=== PATIENT | female | born 1965 | race African-American/Black ===

== ENCOUNTER 2016-09-14 08:45 | Emergency (ER) | payer SELFPAY ==
[~2016-09-14] VITALS: Ht 167.6 cm; Wt 68.0 kg
[~2016-09-14 08:45] MED LIST: IBUP800T23 PO; OSEL75 PO; VENTAER INH
[2016-09-14 08:47] VITALS: BP 116/61; PULSE 80; RESP 17; TEMP 97.8; O2SAT 98
[2016-09-14] MEDS ORDERED: DEXAMETHASONE SOD PHOS 20 MG/5 ML VIAL IM ONE (09:45)
[2016-09-14] MEDS ORDERED: IBUPROFEN 800 MG TAB PO ONE (09:45)
[2016-09-14] MEDS ORDERED: ORPHENADRINE INJ 60 MG/2 ML AMP IM ONE (09:45)
--- NOTE | 2016-09-14 09:50 | PD ---
HPI Chief Complaint: Back/ Neck Pain or Injury Time Seen by Provider: 09:47 Travel History International Travel<30 days: No Contact w/Intl Traveler<30days: No Traveled to known affect area: No History of Present Illness HPI Patient is a 50-year-old female who presents emergency department for evaluation of low back pain. Patient states her pain has been ongoing for approximately 3 days, she states her pain is tight and crampy. She rates her pain a 9 out of 10. She denies any bladder or bowel incontinence, no saddle paresthesia, no weakness in her extremities. She has not taken anything to alleviate the pain. She reports laying on the floor yesterday trying to stretch without relief. PFS Past Medical History Arthritis: Yes Asthma: Yes Heart Rhythm Problems: No Cardiac Catheterization: No Cardiovascular Problems: No High Cholesterol: No Congestive Heart Failure: No Diabetes: No Diminished Hearing: No Hypertension: No Musculoskeletal: Yes (ARTHRITIS) Respiratory: Yes (BRONCHITIS ) Myocardial Infarction: No Ulcer: Yes ?: Not : 5 Para: 5 Tubal Ligation: Yes Past Surgical History Coronary Artery Bypass Graft: No Other Surgery: Yes (TUBAL 11 YEARS AGO) Social History Alcohol Use: Yes (occasional) Tobacco Use: Yes Substance Use: Yes (cocaine, marijuana ) Allergies-Medications (Allergen,Severity, Reaction): Coded Allergies: No Known Allergies (Unverified , 09/14/16) Reported Meds & Prescriptions Reported Meds & Active Scripts Active Review of Systems Except as stated in HPI: all other systems reviewed are Neg Musculoskeletal: Positive: Myalgias, Cramping, Pain Physical Exam Narrative GENERAL: Well-nourished, well-developed patient. SKIN: Warm and dry. HEAD: Normocephalic. EYES: No scleral icterus. No injection or drainage. NECK: Supple, trachea midline. No JVD or lymphadenopathy. CARDIOVASCULAR: Regular rate and rhythm without murmurs, gallops, or rubs. RESPIRATORY: Breath sounds equal bilaterally. No accessory muscle use. GASTROINTESTINAL: Abdomen soft, non-tender, nondistended. MUSCULOSKELETAL: No cyanosis, or edema. 5/5 muscle strength in bilateral lower extremities. Bilateral leg lift elicits pain in the lower back. Tenderness to palpation in paraspinal musculature in the lumbar region bilaterally and positive pedal pulses, brisk less than 3 second capillary refill. BACK: Nontender without obvious deformity. No CVA tenderness. Data Data Last Documented VS Vital Signs Date Time Temp Pulse Resp B/P Pulse Ox O2 Delivery O2 Flow Rate FiO2 09/14/16 08:47 97.8 80 17 116/61 98 Orders Dexamethasone Inj (Decadron Inj) (09/14/16 09:45) Orphenadrine Inj (Norflex Inj) (09/14/16 09:45) Ibuprofen (Motrin) (09/14/16 09:45) MDM Medical Decision Making Medical Screen Exam Complete: Yes Emergency Medical Condition: Yes Interpretation(s) Vital Signs Date Time Temp Pulse Resp B/P Pulse Ox O2 Delivery O2 Flow Rate FiO2 09/14/16 08:47 97.8 80 17 116/61 98 Differential Diagnosis Strain versus sprain versus spasm versus discogenic pain versus other Narrative Course Patient is a 50-year-old female who presents emergency department for evaluation of low back pain that started 3 days ago. On exam patient is tender to palpation in paraspinal musculature in the lumbar region, there are no neurological deficits noted. Patient appears to have difficulty with changing positions secondary to pain. She will be given medication emergency department now. Patient is observed walking around the emergency department without any difficulties after medication administration. She reports her granddaughter had pinkeye 3 weeks ago and she currently thinks she has pink eye however on exam there is no injection, no drainage or edema to her eyes. There is no sign of infection. She was encouraged to return to emergency department should she experience any of these symptoms. She is encouraged to apply warm moist heat to her lower back, continue range of motion exercises, avoid bed rest. She was encouraged to follow-up with her primary doctor return to emergency department for any new or worsening symptoms. Patient is stable for discharge. Diagnosis Primary Impression: Muscle strain Additional Impression: Muscle spasm Referrals: Primary Care Physician Patient Instructions: General Instructions, Muscle Spasm (ED), Muscle Strain ( ED) Additional Instructions: Follow-up with your primary doctor Take medications as directed Warm moist heat to affected area, continue range of motion exercises, avoid bed rest Return to emergency department for new or worsening symptoms Med/Other Pt SpecificInfo: Prescription(s) given Scripts Cyclobenzaprine (Flexeril)10 Mg Tab10 Mg PO TID PRN (MUSCLE SPASM) 10 Days Ref 0 Prov:Deanna Nascimento 09/14/16 Ibuprofen 800 Mg [id number] Mg PO Q8H PRN (Pain/Inflammation) #60 TAB Ref 0 Prov:Deanna Nascimento 09/14/16 Disposition: 01 DISCHARGE HOME Condition: Stable Deanna Nascimento Sep 14, 2016 09:50
[2016-09-14] MEDS ORDERED: CYCL1TAB29 PO (10:42)
[2016-09-14] MEDS ORDERED: IBUP800T23 PO (10:42)
== END 2016-09-14 10:58 | disposition home or self-care (01) ==
LOC: NEPB 08:45
DX: S39.012A Strain of muscle, fascia and tendon of lower back, initial encounter (principal); M62.830 Muscle spasm of back; Z72.0 Tobacco use; F14.90 Cocaine use, unspecified, uncomplicated; F12.90 Cannabis use, unspecified, uncomplicated; X58.XXXA Exposure to other specified factors, initial encounter
CPT/HCPCS: 96372; 99283; J1100; J2360

== ENCOUNTER 2017-06-24 09:33 | Emergency (ER) | payer SELFPAY ==
[~2017-06-24] VITALS: Ht 167.6 cm; Wt 55.0 kg
[~2017-06-24 09:33] MED LIST changes: +CYCL1TAB29 PO; -OSEL75 PO; -VENTAER INH
[2017-06-24 09:35] VITALS: BP 131/78; PULSE 88; RESP 12; TEMP 98.2; O2SAT 98
[2017-06-24] MEDS ORDERED: REGL10TA5 PO (10:28)
[2017-06-24] MEDS ORDERED: PRED20 PO (10:29)
[2017-06-24] MEDS ORDERED: FAMO1TAB37 PO (10:29)
[2017-06-24] MEDS ORDERED: predniSONE 20 MG TAB PO ONE (10:30)
[2017-06-24] MEDS ORDERED: FAMOTIDINE 20 MG TAB PO ONE (10:30)
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
== END 2017-06-24 10:46 | disposition home or self-care (01) ==
LOC: NEPD 09:33
DX: R22.0 Localized swelling, mass and lump, head (principal); J45.909 Unspecified asthma, uncomplicated; M19.90 Unspecified osteoarthritis, unspecified site; J40 Bronchitis, not specified as acute or chronic; F17.200 Nicotine dependence, unspecified, uncomplicated
CPT/HCPCS: 99284; J7512

== ENCOUNTER 2017-07-02 07:36 | Emergency (ER) | payer SELFPAY ==
[~2017-07-02] VITALS: Ht 165.1 cm; Wt 60.0 kg
[~2017-07-02 07:36] MED LIST changes: -CYCL1TAB29 PO; +FAMO1TAB37 PO; -IBUP800T23 PO; +PRED20 PO
[2017-07-02 07:43] VITALS: BP 148/83; PULSE 99; RESP 18; TEMP 97.9; O2SAT 97
[2017-07-02] MEDS ORDERED: AZIT250T3 PO (08:01)
[2017-07-02] MEDS ORDERED: VENTAER INH (08:01)
--- NOTE | 2017-07-02 08:10 | PD ---
HPI Chief Complaint: Cold / Flu Symptoms Time Seen by Provider: 07:45 Travel History International Travel<30 days: No Contact w/Intl Traveler<30days: No Traveled to known affect area: No History of Present Illness HPI 51-year-old female presents to the emergency room for evaluation of right ear pain, left-sided facial swelling, nonproductive cough, and congestion. Patient states earache, cough, congestion started yesterday. She has associated pleuritic chest pain with cough. Her grandchildren are sick with similar symptoms. She denies fever, chills, nausea, and vomiting. States the facial swelling is ongoing for the past week. She came to the emergency room last week for the same complaint and was given prescriptions for prednisone and Pepcid. States she finished the prednisone and it seemed to improve her symptoms; she is requesting more. She denies any dental pain. Patient denies chronic medical conditions or daily medications. PFSH Past Medical History Arthritis: Yes Asthma: Yes Heart Rhythm Problems: No Cardiac Catheterization: No Cardiovascular Problems: No High Cholesterol: No Congestive Heart Failure: No Diabetes: No Diminished Hearing: No Hypertension: No Musculoskeletal: Yes (ARTHRITIS) Respiratory: Yes (BRONCHITIS ) Myocardial Infarction: No Ulcer: Yes Tetanus Vaccination: < 5 Years ?: Not : 5 Para: 5 Tubal Ligation: Yes Past Surgical History Coronary Artery Bypass Graft: No Other Surgery: Yes (TUBAL 11 YEARS AGO) Family History Family Myocardial Infarction: No Social History Alcohol Use: Yes (occasional) Tobacco Use: Yes Substance Use: Yes (cocaine, marijuana ) Allergies-Medications (Allergen,Severity, Reaction): Coded Allergies: penicillin V (Verified Allergy, Intermediate, vomiting, 07/02/17) Reported Meds & Prescriptions Reported Meds & Active Scripts Active Azithromycin 250 Mg Tab 250 Mg PO DIRECTED Take 2 tabs (500 mg) on day 1 then 1 tab daily x 4 days. Ventolin Hfa 18 GM Inh (Albuterol Sulfate) 90 Mcg/Act Aer 2 Puff INH Q6H PRN Pepcid (Famotidine) 20 Mg Tab 20 Mg PO BID 5 Days Prednisone 20 Mg Tab 40 Mg PO DAILY 4 Days Take 40 mg (2 tablets) daily for 5 days Review of Systems Except as stated in HPI: all other systems reviewed are Neg Physical Exam Narrative GENERAL: Well-nourished, well-developed female in no acute distress. Afebrile. Ambulatory. SKIN: Focused skin assessment warm/dry. HEAD: Normocephalic. EYES: No scleral icterus. No injection or drainage. NECK: Supple, trachea midline. No JVD or lymphadenopathy. EARS: Bilateral pinnae and external canals appear within normal limits. Right tympanic membrane is extremely erythematous and dull. No perforation. Left tympanic membrane cannot be visualized due to cerumen impaction. ENT: Mucosa pink and moist. No significant erythema, exudates, or edema. No uvular edema. No uvular, palatal, or tonsillar deviation. Airway patent. Nasal turbinates appear normal without nasal blood, purulent drainage or septal hematoma. CARDIOVASCULAR: Regular rate and rhythm without murmurs, gallops, or rubs. RESPIRATORY: Breath sounds equal bilaterally. No accessory muscle use. Bilateral expiratory wheezes. Data Data Last Documented VS Vital Signs Date Time Temp Pulse Resp B/P (MAP) Pulse Ox O2 Delivery O2 Flow Rate FiO2 07/02/17 07:43 97.9 99 18 148/83 (104) 97 MDM Medical Decision Making Medical Screen Exam Complete: Yes Emergency Medical Condition: Yes Medical Record Reviewed: Yes Differential Diagnosis Otitis media, URI, cough, pneumonia, strep Narrative Course 51-year-old female presents to the emergency room for evaluation of right ear pain, nonproductive cough, congestion, and left-sided facial swelling. Most symptoms started 2 days ago but the facial swelling started last week. Patient came to the ER for this last week for swelling and was given Pepcid and prednisone. States it helped; she is requesting more. There is no objective facial swelling on exam. No tenderness to palpation of the teeth. Mild tenderness to palpation of bilateral maxillary sinuses. No focal neurological deficits. Patient is well-appearing. Nontoxic. Vital signs stable. Patient has extreme erythema of the right tympanic membrane without effusion. Lung sounds are clear with expiratory wheezing. This is otitis media, likely viral with associated upper respiratory symptoms but patient will be treated empirically with azithromycin as she is allergic to penicillin. She'll be given an inhaler for wheezing. Told to take ibuprofen for pain and swelling. Told to return for worsening symptoms. She understands and agrees to plan. Diagnosis Primary Impression: Right otitis media Qualified Codes: H66.001 - Acute suppurative otitis media without spontaneous rupture of ear drum, right ear Additional Impression: Upper respiratory infection Qualified Codes: J00 - Acute nasopharyngitis [common cold] Referrals: Primary Care Physician Additional Instructions: Rest and drink plenty of fluids. Take azithromycin as directed, until gone. Use inhaler as directed, as needed for wheezing. Take ibuprofen with food as directed, as needed for pain. Follow-up with a primary care physician. Return to the emergency room for worsening symptoms. Med/Other Pt SpecificInfo: Prescription(s) given Scripts Azithromycin (Azithromycin) 250 Mg Tab 250 MG PO DIRECTED for Infection, #6 TAB 0 Refills Take 2 tabs (500 mg) on day 1 then 1 tab daily x 4 days. Prov: Get Bentley MD 07/02/17 Albuterol 18 GM Inh (Ventolin Hfa 18 GM Inh) 90 Mcg/Act Aer 2 PUFF INH Q6H Y for SHORTNESS OF BREATH, #1 INHALER 0 Refills Prov: Get Bentley MD 07/02/17 Disposition: 01 DISCHARGE HOME Condition: Stable Sarah Castro Jul 02, 2017 08:10
== END 2017-07-02 08:48 | disposition home or self-care (01) ==
LOC: NEPD 07:36
DX: H66.91 Otitis media, unspecified, right ear (principal); J06.9 Acute upper respiratory infection, unspecified; R22.0 Localized swelling, mass and lump, head; M19.90 Unspecified osteoarthritis, unspecified site; J45.909 Unspecified asthma, uncomplicated; Z79.899 Other long term (current) drug therapy; Z72.0 Tobacco use
CPT/HCPCS: 99284

== ENCOUNTER 2017-09-09 08:32 | Emergency (ER) | payer BC ==
[~2017-09-09] VITALS: Ht 167.6 cm; Wt 54.0 kg
[~2017-09-09 08:32] MED LIST changes: +AZIT250T3 PO; +VENTAER INH
[2017-09-09 08:34] VITALS: BP 107/72; PULSE 87; RESP 15; TEMP 97.7; O2SAT 96
--- NOTE | 2017-09-09 09:18 | PD ---
HPI Chief Complaint: Cold / Flu Symptoms Time Seen by Provider: 09:01 Travel History International Travel<30 days: No Contact w/Intl Traveler<30days: No Traveled to known affect area: No History of Present Illness HPI This is a 51-year-old female with history of tobaccoism, chronic bronchitis, who presents today with complaints of fever blister to her lower right lip. The patient states that she works in a sterile environment workplace and cannot go to work as long she has his fever blister. Patient denies any previous history of fever blister. She does report that she feels as though she is going through menopause at she's had irregular menses. She reports that when she's not mistreating, she does not have appetite. She states that her menstrual cycle did come on after a long time not and then her appetite increased patient reports roughly a 40 pound weight loss in one year. She is not trying to lose weight however does report not eating as much. The patient denies any history of infectious diseases. There are no other complaints time my examination. PFSH Past Medical History Arthritis: Yes Asthma: Yes Heart Rhythm Problems: No Cardiac Catheterization: No Cardiovascular Problems: No High Cholesterol: No Congestive Heart Failure: No Diabetes: No Diminished Hearing: No Hypertension: No Musculoskeletal: Yes (ARTHRITIS) Respiratory: Yes (BRONCHITIS ) Myocardial Infarction: No Ulcer: Yes ?: Not : 5 Para: 5 Tubal Ligation: Yes Past Surgical History Coronary Artery Bypass Graft: No Other Surgery: Yes (TUBAL 11 YEARS AGO) Social History Alcohol Use: Yes (occasional) Tobacco Use: Yes Substance Use: Yes (cocaine, marijuana ) Allergies-Medications (Allergen,Severity, Reaction): Coded Allergies: penicillin V (Verified Allergy, Intermediate, vomiting, 09/09/17) Reported Meds & Prescriptions Reported Meds & Active Scripts Active Acyclovir 400 Mg Tab 400 Mg PO TID 10 Days Ventolin Hfa 18 GM Inh (Albuterol Sulfate) 90 Mcg/Act Aer 2 Puff INH Q6H PRN Review of Systems Except as stated in HPI: all other systems reviewed are Neg General / Constitutional: No: Fever, Chills Eyes: No: Blurred Vision, Photophobia, Pain HENT: Positive: Other ("fever blister" to right lower lip.), No: Headaches, Sore Throat, Rhinorrhea, Congestion, Neck Pain Cardiovascular: No: Chest Pain or Discomfort, Palpitations Respiratory: No: Cough, Shortness of Breath Gastrointestinal: No: Nausea, Vomiting, Abdominal Pain Genitourinary: No: Frequency, Dysuria Musculoskeletal: No: Weakness, Pain Skin: Positive Lesions (cold sore on the right lower lip), No Rash Physical Exam Narrative GENERAL: Thin appearing female in no acute distress. SKIN: Focused skin assessment warm/dry. HEAD: Atraumatic. Normocephalic. EYES: No scleral icterus. No injection or drainage. ENT: No nasal bleeding or discharge. Mucous membranes are moist. Patient does have what appears to be a cold sore on the right lower lip. It appears to be crusting over at this point. There is no obvious drainage. NECK: Trachea midline. Supple. CARDIOVASCULAR: Regular rate and rhythm. No murmur appreciated. RESPIRATORY: No accessory muscle use. Clear to auscultation. Breath sounds equal bilaterally. GASTROINTESTINAL: Abdomen soft, non-tender, nondistended. Hepatic and splenic margins not palpable. NEUROLOGICAL: Awake and alert. No obvious cranial nerve deficits. Motor grossly within normal limits. Normal speech. Data Data Last Documented VS Vital Signs Date Time Temp Pulse Resp B/P (MAP) Pulse Ox O2 Delivery O2 Flow Rate FiO2 09/09/17 08:34 97.7 87 15 107/72 (84) 96 Orders Orders Herpes Simplex Virus Culture (09/09/17 09:01) [facility] Medical Decision Making Medical Screen Exam Complete: Yes Emergency Medical Condition: Yes Differential Diagnosis Herpes simplex virus versus chapped lips versus candidal infection Narrative Course 51-year-old female presents with "fever blister" on her lower lip. Patient is concerned that she has this and can't go back to work. She's not had one before this and be her first one. Patient also does give history that she's had a 40 pound weight loss over the last 12 months that she states that she has no insurance and has a doctor that she'll be seen first this year. She is instructed to follow up with her physician for further testing. Client Support Manager that with this weight loss 1 make sure there is no neoplastic syndrome or infectious disease process. She states she understands this will do so. She is instructed to stop smoking. 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 When you follow up with your new physician, please make sure they know about sure weight loss over this past year. He may require testing for possible sources of the weight loss. This could include infectious disease or neoplastic syndrome related to smoking. It may simply be because you are not eating as much as she previously had. Med/Other Pt SpecificInfo: Prescription(s) given Scripts Acyclovir (Acyclovir) 400 Mg Tab 400 MG PO TID for Mgmt Viral Infection for 10 Days, TAB 0 Refills Prov: Bernard Cordero MD 09/09/17 Disposition: 01 DISCHARGE HOME Condition: Stable Bernard Cordero MD Sep 09, 2017 09:18
[2017-09-09] MEDS ORDERED: ACYC400T PO (09:55)
== END 2017-09-09 10:41 | disposition home or self-care (01) ==
LOC: NEPC 08:32
DX: B00.1 Herpesviral vesicular dermatitis (principal); R63.4 Abnormal weight loss; Z72.0 Tobacco use
CPT/HCPCS: 87255; 99283

== ENCOUNTER 2017-10-31 13:51 | Emergency (ER) | payer SELFPAY ==
[~2017-10-31] VITALS: Ht 167.6 cm; Wt 51.6 kg
[~2017-10-31 13:51] MED LIST changes: +ACYC400T PO; -AZIT250T3 PO; -FAMO1TAB37 PO; -PRED20 PO
[2017-10-31 13:54] VITALS: BP 128/58; PULSE 87; RESP 20; TEMP 98.2; O2SAT 100
--- NOTE | 2017-10-31 19:08 | PD ---
Physical Exam Date Seen by Provider: Oct 31, 2017 Time Seen by Provider: 16:48 Narrative 51 year old female presents to the emergency department for evaluation of abdominal pain, decreased appetite and weight loss over the past few months. She states she was seen for this a few months ago, but has not followed up outpatient. Current pain is 06/20. Data Data Last Documented VS Vital Signs Date Time Temp Pulse Resp B/P (MAP) Pulse Ox O2 Delivery O2 Flow Rate FiO2 10/31/17 16:48 10/31/17 13:54 98.2 87 20 100 Room Air Orders Orders Complete Blood Count With Diff (10/31/17 14:03) Comprehensive Metabolic Panel (10/31/17 14:03) Lipase (10/31/17 14:03) Prothrombin Time / Inr (Pt) (10/31/17 14:03) Act Partial Throm Time (Ptt) (10/31/17 14:03) Urinalysis - C+S If Indicated (10/31/17 14:03) MDM Supervised Visit with [facility]: No Narrative Course 51 year old female presents to the emergency department for evaluation of abdominal pain. Patient is initially seen in triage and work up is initiated. Patient left AMA before she could be moved to a medical bed. Diagnosis Primary Impression: Left against medical advice Disposition: 07 AGAINST MEDICAL ADVICE Jyotsna Amin Oct 31, 2017 19:08
== END 2017-10-31 18:06 | disposition left against medical advice (07) ==
LOC: NED 13:51
DX: R10.9 Unspecified abdominal pain (principal)
CPT/HCPCS: 99281

== ENCOUNTER 2017-11-16 10:29 | Emergency (ER) | payer BC ==
[~2017-11-16] VITALS: Ht 162.6 cm; Wt 50.0 kg
[2017-11-16] MEDS ORDERED: IOHEXOL 350 MG/ML 10 ML VIAL (for RAD DIAG) IVCONTRAST ONE (10:30)
[2017-11-16 10:48] VITALS: BP 136/68; PULSE 81; RESP 16; TEMP 98.1; O2SAT 100
[2017-11-16 11:27] LABS: AUTOMATED NEUTROPHIL # 2.1 TH/MM3 (1.8-7.7); BASOPHIL % 0.5 % (0.0-2.0); EOSINOPHIL # 0.1 TH/MM3 (0-0.4); EOSINOPHIL % 3.6 % (0.0-4.0); HEMATOCRIT 35.4 % (35.0-46.0); HEMOGLOBIN 11.5 GM/DL (11.6-15.3); LYMPH % 15.2 % (9.0-44.0); LYMPHOCYTE # 0.4 TH/MM3 (1.0-4.8); MEAN CELL VOLUME 79.5 FL (80.0-100.0); MEAN CORPUSCULAR HEMOGLOBIN 25.7 PG (27.0-34.0); MEAN CORPUSCULAR HGB CONC 32.4 % (32.0-36.0); MEAN PLATELET VOLUME 7.8 FL (7.0-11.0); MONO % 6.1 % (0.0-8.0); MONOCYTE # 0.2 TH/MM3 (0-0.9); NEUT % 74.6 % (16.0-70.0); PLATELET COUNT 160 TH/MM3 (150-450); RED BLOOD COUNT 4.45 MIL/MM3 (4.00-5.30); RED CELL DISTRIBUTION WIDTH 15.8 % (11.6-17.2); WHITE BLOOD COUNT 2.8 TH/MM3 (4.0-11.0)
[2017-11-16 11:37] LABS: INTERNATIONAL NORMALIZED RATIO 1.1 RATIO; PROTHROMBIN TIME - PATIENT 10.9 SEC (9.8-11.6)
[2017-11-16] MEDS ORDERED: METOCLOPRAMIDE HCL 10 MG/2 ML VIAL IV PUSH ONE (12:30)
[2017-11-16] MEDS ORDERED: SODIUM CHLOR 0.9% 1000 ML INJ 1,000 ML IV ONE (12:30)
--- NOTE | 2017-11-16 12:40 | PD ---
HPI Chief Complaint: GI Complaint Time Seen by Provider: 12:09 Travel History International Travel<30 days: No Contact w/Intl Traveler<30days: No Traveled to known affect area: No History of Present Illness HPI 51-year-old female presents emergency department with concerns of a 4 month history of unexplained weight loss, vomiting, nausea, and abdominal cramping. She comes in today because her daughter was extremely concerned and crying over this issue. States in addition her stool has changed to become more soft, dark brown. Says her vomitus has been yellow. Last bowel movement 2 days ago, she says she has been unable to eat in 3 days. Patient does not know the name of her primary care physician and she has not followed up regarding this issue. Says a history of low potassium. Patient denies other chronic medical issues or medication use. States states that she occasionally smokes marijuana but denies any other illicit drug use. Denies alcohol use for approximately 2 years. She has a remote history of a tubal ligation. Last menstrual period September 2016. Denies vaginal discharge. PFSH Past Medical History Arthritis: Yes Asthma: Yes Heart Rhythm Problems: No Cardiac Catheterization: No Cardiovascular Problems: No High Cholesterol: No Congestive Heart Failure: No Diabetes: No Diminished Hearing: No GERD: Yes Hypertension: No Musculoskeletal: Yes (ARTHRITIS) Respiratory: Yes (BRONCHITIS ) Myocardial Infarction: No Ulcer: Yes Tetanus Vaccination: < 5 Years Influenza Vaccination: No ?: Not Menopausal: Yes : 5 Para: 5 Tubal Ligation: Yes Past Surgical History Coronary Artery Bypass Graft: No Other Surgery: Yes (TUBAL 11 YEARS AGO) Social History Alcohol Use: Yes (occasional) Tobacco Use: Yes Substance Use: Yes (cocaine, marijuana ) Allergies-Medications (Allergen,Severity, Reaction): Coded Allergies: penicillin V (Verified Allergy, Intermediate, vomiting, 11/16/17) Reported Meds & Prescriptions Reported Meds & Active Scripts Active Dicyclomine (Dicyclomine HCl) 20 Mg Tab 20 Mg PO TID 7 Days Zofran (Ondansetron HCl) 4 Mg Tab 4 Mg PO Q8HR PRN 7 Days Reglan (Metoclopramide HCl) 10 Mg Tab 10 Mg PO QID 7 Days Ventolin Hfa 18 GM Inh (Albuterol Sulfate) 90 Mcg/Act Aer 2 Puff INH Q6H PRN Review of Systems Except as stated in HPI: all other systems reviewed are Neg Physical Exam Narrative GENERAL: Well-developed, well-nourished, thin SKIN: Focused skin assessment warm/dry. No rashes or lesions HEAD: Atraumatic. Normocephalic. EYES: Pupils equal and round. No scleral icterus. No injection or drainage. ENT: No nasal bleeding or discharge. Mucous membranes pink and moist. Posterior pharynx with irritation without exudate or discharge NECK: Trachea midline. No JVD. No lymphadenopathy CARDIOVASCULAR: Regular rate and rhythm. No murmur appreciated. RESPIRATORY: No accessory muscle use. Clear to auscultation. Breath sounds equal bilaterally. GASTROINTESTINAL: Abdomen soft, non-tender, nondistended. No CVA tenderness. MUSCULOSKELETAL: No obvious deformities. No clubbing. No cyanosis. No edema. NEUROLOGICAL: Awake and alert. No obvious cranial nerve deficits. Motor grossly within normal limits. Normal speech. PSYCHIATRIC: Appropriate mood and affect; insight and judgment normal. Data Data Last Documented VS Vital Signs Date Time Temp Pulse Resp B/P (MAP) Pulse Ox O2 Delivery O2 Flow Rate FiO2 11/16/17 11:55 18 11/16/17 10:48 98.1 81 136/68 (90) 100 Orders Orders Complete Blood Count With Diff (11/16/17 10:51) Urinalysis - C+S If Indicated (11/16/17 10:51) Act Partial Throm Time (Ptt) (11/16/17 10:51) Prothrombin Time / Inr (Pt) (11/16/17 10:51) Comprehensive Metabolic Panel (11/16/17 12:29) Ct Abd/Pel W Iv Contrast(Rout) (11/16/17 ) Metoclopramide Inj (Reglan Inj) (11/16/17 12:30) Sodium Chlor 0.9% 1000 Ml Inj (Ns 1000 M (11/16/17 12:30) Potassium Chloride (Kcl) (11/16/17 13:30) Iohexol 350 Inj (Omnipaque 350 Inj) (11/16/17 10:30) Ed Discharge Order (11/16/17 14:35) Labs Laboratory Tests Test 11/16/17 10:58 11/16/17 12:00 White Blood Count 2.8 TH/MM3 Red Blood Count 4.45 MIL/MM3 Hemoglobin 11.5 GM/DL Hematocrit 35.4 % Mean Corpuscular Volume 79.5 FL Mean Corpuscular Hemoglobin 25.7 PG Mean Corpuscular Hemoglobin Concent 32.4 % Red Cell Distribution Width 15.8 % Platelet Count 160 TH/MM3 Mean Platelet Volume 7.8 FL Neutrophils (%) (Auto) 74.6 % Lymphocytes (%) (Auto) 15.2 % Monocytes (%) (Auto) 6.1 % Eosinophils (%) (Auto) 3.6 % Basophils (%) (Auto) 0.5 % Neutrophils # (Auto) 2.1 TH/MM3 Lymphocytes # (Auto) 0.4 TH/MM3 Monocytes # (Auto) 0.2 TH/MM3 Eosinophils # (Auto) 0.1 TH/MM3 Basophils # (Auto) 0.0 TH/MM3 CBC Comment DIFF FINAL Differential Comment Prothrombin Time 10.9 SEC Prothromb Time International Ratio 1.1 RATIO Activated Partial Thromboplast Time 24.2 SEC Blood Urea Nitrogen 8 MG/DL Creatinine 0.62 MG/DL Random Glucose 81 MG/DL Total Protein 8.7 GM/DL Albumin 3.9 GM/DL Calcium Level 9.2 MG/DL Alkaline Phosphatase 62 U/L Aspartate Amino Transf (AST/SGOT) 30 U/L Alanine Aminotransferase (ALT/SGPT) 22 U/L Total Bilirubin 0.3 MG/DL Sodium Level 138 MEQ/L Potassium Level 2.8 MEQ/L Chloride Level 100 MEQ/L Carbon Dioxide Level 29.8 MEQ/L Anion Gap 8 MEQ/L Estimat Glomerular Filtration Rate 123 ML/MIN Urine Color YELLOW Urine Turbidity CLEAR Urine pH 6.5 Urine Specific [place] 1.029 Urine Protein 30 mg/dL Urine Glucose (UA) NEG mg/dL Urine Ketones 10 mg/dL Urine Occult Blood NEG Urine Nitrite NEG Urine Bilirubin NEG Urine Urobilinogen 2.0 MG/DL Urine Leukocyte Esterase NEG Urine RBC 1 /hpf Urine WBC 1 /hpf Urine Squamous Epithelial Cells 2 /hpf Urine Mucus MANY /lpf Microscopic Urinalysis Comment CULT NOT INDICATED MDM Medical Decision Making Medical Screen Exam Complete: Yes Emergency Medical Condition: Yes Differential Diagnosis Gastroenteritis, colitis, immunodeficiency, SBO, nausea, vomiting, carcinoma Narrative Course 51y female presents to the ED c/o a 4-month history of nausea, vomiting, and abdominal cramping. Vital signs stable. Labs and imaging studies ordered. After review the EMR, it appears that patient has been to the emergency department 2-3 other times. Last visit was October 31, 2017 and she left AMA, prior to being seen. She was seen September 09 for a fever blister but mentioned to the physician about her abdominal pain. Patient did not seem overly concerned at that time for this complaint. 1L NS bolus, reglan 10mg administered. Hypokalemia at 2.8, 40mEq administered. Remaining labs show chronic leukopenia with WBC 2.8, acute on chronic hypokalemia at 2.8 (note normal is 3.2), coag stable, urinalysis noncontributory Last Impressions Abdomen/Pelvis CT 11/16/17 0000 Signed Impressions: Service Date/Time: November 13:29 - CONCLUSION: 1. There is some diverticulosis of the sigmoid colon without inflammatory changes. 2. Otherwise, unremarkable exam for patient's age. Butch Stokes MD Pt to follow up as an outpatient for her abdominal cramping and nausea. No obvious cause for her abdominal cramping or nausea but not emergency cause noted. Pt will be discharged with reglan, dicyclomine, and zofran for her nausea and abdominal pain. Because pt has chronic hypokalemia, I do not feel she needs to stay in the hospital today for her low potassium. I explained the findings today to her. Advised she follow up with a irrigator valve pipe regarding these findings today. She states understanding and will comply. Diagnosis Primary Impression: Hypokalemia Additional Impression: Nausea & vomiting Qualified Codes: R11.2 - Nausea with vomiting, unspecified Referrals: [facility] Additional Instructions: Follow up with her primary care physician within 2-3 days. Follow up with a irrigator valve pipe as well. You had low potassium today. Consider supplements at the recommendation of your primary physician. Take medications as prescribed. Recommend the BRAT diet for your abdominal pain and nausea. Bananas, rice, applesauce, toast. [facility] with [facility] as well. Scripts Dicyclomine (Dicyclomine) 20 Mg Tab 20 MG PO TID for Bowel Management for 7 Days, #21 TAB 0 Refills Prov: Evelyn Cruz 11/16/17 Ondansetron (Zofran) 4 Mg Tab 4 MG PO Q8HR Y for NAUSEA OR VOMITING for 7 Days, #28 TAB 0 Refills Prov: Evelyn Cruz 11/16/17 Metoclopramide (Reglan) 10 Mg Tab 10 MG PO QID for Nausea for 7 Days, #30 TAB 0 Refills Prov: Evelyn Cruz 11/16/17 Disposition: 01 DISCHARGE HOME Condition: Stable Evelyn Cruz Nov 16, 2017 12:40
[2017-11-16 13:01] LABS: ALBUMIN 3.9 GM/DL (3.4-5.0); ALKALINE PHOSPHATASE 62 U/L (45-117); ALT (GPT) 22 U/L (10-53); AST (GOT) 30 U/L (15-37); BICARBONATE 29.8 MEQ/L (21.0-32.0); BLOOD UREA NITROGEN 8 MG/DL (7-18); CALCIUM 9.2 MG/DL (8.5-10.1); CHLORIDE 100 MEQ/L (98-107); CREATININE 0.62 MG/DL (0.50-1.00); GLOMERULAR FILTRATION RATE 123 ML/MIN (>89); GLUCOSE,RANDOM 81 MG/DL (74-106); SODIUM (NA) 138 MEQ/L (136-145); TOTAL BILIRUBIN ADULT 0.3 MG/DL (0.2-1.0); TOTAL PROTEIN 8.7 GM/DL (6.4-8.2)
[2017-11-16 13:21] LABS: BILIRUBIN, URINE NEG (NEG); BLOOD, URINE NEG (NEG); GLUCOSE,URINE NEG (NEG); KETONE, URINE 10 mg/dL (NEG); MUCUS URINE MANY /lpf (OCC); NITRITE,URINE NEG (NEG); PH, URINE 6.5 (5.0-8.5); SQUAMOUS EPITHELIAL CELL URINE 2 /hpf (0-5); URINE COLOR YELLOW (YELLW/STRAW); URINE LEUKOCYTE ESTERASE NEG (NEG)
[2017-11-16] MEDS ORDERED: POTASSIUM CHLORIDE 20 MEQ CONTROLLED RELEASE TAB PO ONE (13:30)
--- NOTE | 2017-11-16 13:49 | RADRPT ---
EXAM DATE/TIME: 11/16/2017 13:29 [facility] COMPARISON: No previous studies available for comparison. INDICATIONS : Diffuse abdomen pain with vomiting for several months with weight loss. IV CONTRAST: 96 cc Omnipaque 350 (iohexol) IV ORAL CONTRAST: No oral contrast ingested. RADIATION DOSE: 4.48 CTDIvol (mGy) MEDICAL HISTORY : Ulcers. 40 pound weight loss. SURGICAL HISTORY : Tubal ligation. ENCOUNTER: Initial ACUITY: 3 months PAIN SCALE: 9/10 LOCATION: Bilateral upper quadrant TECHNIQUE: Volumetric scanning of the abdomen and pelvis was performed. Using automated exposure control and ad justment of the mA and/or kV according to patient size, radiation dose was kept as low as reasonably achievable to obtain optimal diagnostic quality images. DICOM format image data is available electro nically for review and comparison. FINDINGS: LOWER LUNGS: The visualized lower lungs are clear. LIVER: Homogeneous density without lesion. There is no dilation of the biliary tree. No calcified gallston es. SPLEEN: Normal size without lesion. PANCREAS: Within normal limits. KIDNEYS: Normal in size and shape. There is no mass, stone or hydronephrosis. ADRENAL GLANDS: Within normal limits. VASCULAR: There is no aortic aneurysm. BOWEL/MESENTERY: The stomach, small bowel, and colon demonstrate no acute abnormality. There is no free intraperitone al air or fluid. The appendix is unremarkable. There is some diverticulosis of the sigmoid colon with out inflammatory changes. There is stool throughout the colon. There is no evidence of obstruction. ABDOMINAL WALL: Within normal limits. RETROPERITONEUM: There is no lymphadenopathy. BLADDER: No wall thickening or mass. REPRODUCTIVE: Within normal limits. INGUINAL: There is no lymphadenopathy or hernia. MUSCULOSKELETAL: Within normal limits for patient age. CONCLUSION: 1. There is some diverticulosis of the sigmoid colon without inflammatory changes. 2. Otherwise, unremarkable exam for patient's age. Butch Stokes MD on November 16, 2017 at 13:45 Board Certified Radiologist. This report was verified electronically.
[2017-11-16] MEDS ORDERED: REGL10TA5 PO (14:19)
[2017-11-16] MEDS ORDERED: ZOFR4TAB PO (14:19)
[2017-11-16] MEDS ORDERED: DICY20TA10 PO (14:19)
== END 2017-11-16 15:01 | disposition home or self-care (01) ==
LOC: NEPC 10:29
DX: E87.6 Hypokalemia (principal); R11.2 Nausea with vomiting, unspecified; K57.30 Diverticulosis of large intestine without perforation or abscess without bleeding; D72.819 Decreased white blood cell count, unspecified; F14.90 Cocaine use, unspecified, uncomplicated; F12.90 Cannabis use, unspecified, uncomplicated; M19.90 Unspecified osteoarthritis, unspecified site; J45.909 Unspecified asthma, uncomplicated; Z72.0 Tobacco use
CPT/HCPCS: 74177; 80053; 81001; 85025; 85610; 85730; 96361; 96374; 99284; J2765; J7030; Q9967